=== PATIENT | male | born 1975 | race Hispanic/Latino ===

== ENCOUNTER 2023-09-15 08:27 | Day surgery (SDC) | payer OTHER ==
[2023-09-13 14:00] LABS: BASOPHILS # (AUTO) 0.03 K/uL (0.00-0.20); BASOPHILS % (AUTO) 0.6 % (0.0-5.0); EOSINOPHILS % (AUTO) 1.9 % (0.0-8.0); HEMATOCRIT 43.6 % (42-54); IMMATURE GRANULOCYTE ABSOLUTE 0.01 K/uL (0-1); LYMPHOCYTES # (AUTO) 1.7 K/uL (1.0-4.8); LYMPHOCYTES % (AUTO) 32.3 % (21.0-51.0); MEAN CORPUSCULAR HEMOGLOBIN 32.3 pg (27.0-33.0); MEAN CORPUSCULAR HGB CONC 33.7 g/dL (32.0-36.0); MEAN CORPUSCULAR VOLUME 95.8 fL (79-99); MONOCYTES # (AUTO) 0.4 K/uL (0.1-1.0); MONOCYTES % (AUTO) 7.2 % (3.0-13.0); NEUTROPHILS % (AUTO) 57.8 % (40.0-77.0); PLATELET COUNT (AUTO) 163 K/uL (130-400); RED BLOOD CELL COUNT(AUTO) 4.55 MIL/uL (4.50-6.20); RED CELL DISTRIBUTION WIDTH 12.8 % (11.0-15.5); WHITE BLOOD COUNT (AUTO) 5.3 K/uL (4.8-10.8)
[2023-09-13 14:08] LABS: POTASSIUM 3.8 mmol/L (3.5-5.1)
[2023-09-13 14:10] LABS: INR 0.95 (0.85-1.15); PROTHROMBIN TIME 11.3 SEC (9.6-11.6)
[2023-09-13 14:36] LABS: APPEARANCE,URINE CLEAR (CLEAR); BILIRUBIN,URINE NEGATIVE (NEGATIVE); COLOR,URINE COLORLESS (YELLOW); GLUCOSE, URINE (UA) NEGATIVE (NEGATIVE); KETONES,URINE NEGATIVE (NEGATIVE); LEUKOCYTE ESTERASE ,URINE NEGATIVE Leu/uL (NEGATIVE); NITRATE,URINE NEGATIVE (NEGATIVE); OCCULT BLOOD,URINE NEGATIVE (NEGATIVE); PH,URINE 6.5 (5.0-8.0); PROTEIN,URINE NEGATIVE (NEGATIVE); UROBILINOGEN,URINE 0.2 mg/dL (0.2-1.0)
[2023-09-13 14:45] LABS: B-TYPE NATRIURETIC PEPTIDE 10 pg/mL (0-100)
[2023-09-13 14:48] LABS: ADD UA MICROSCOPIC YES
[2023-09-13 15:03] VITALS: BP 125/78; PULSE 63; RESP 16
[2023-09-13 15:06] LABS: RBC,URINE 0-1 /HPF (0-1)
[~2023-09-15] VITALS: Ht 167.6 cm; Wt 76.7 kg
[2023-09-15] VITALS (8 sets, daily range): BP systolic 96–115; BP diastolic 57–74; PULSE 54–67; RESP 14–18
[~2023-09-15 08:27] MED LIST: AEC81 PO; ATOR40TA69 PO; ISOS30TA92 PO; METO-408 PO; NITR0.4T50 SL
[2023-09-15] MEDS: 0.9%NACL 1000ML 1,000 ML IV ONE (09:09)
[2023-09-15] MEDS ORDERED: IOHEXOL 350 MG/ML 100ML INFUS..BTL IV ONE (11:44)
[2023-09-15] MEDS ORDERED: LIDOCAINE HCL 400MG/20ML VIAL ONE (11:44)
[2023-09-15] MEDS ORDERED: IOHEXOL-350 50ML VIAL IV ONE (11:44)
[2023-09-15] MEDS ORDERED: HEPARIN 10,000 UNIT/10ML (1,000 UNIT/ML) VIAL ONE (11:44)
== END 2023-09-15 15:35 | disposition home or self-care (01) ==
LOC: DAH 08:27
PROVIDERS: ATTEND Internal Medicine Cardiovascular Disease
DX: I25.119 Atherosclerotic heart disease of native coronary artery with unspecified angina pectoris (principal); E78.5 Hyperlipidemia, unspecified; Z79.01 Long term (current) use of anticoagulants; Z79.899 Other long term (current) drug therapy; Z90.49 Acquired absence of other specified parts of digestive tract; Z98.890 Other specified postprocedural states; Z82.49 Family history of ischemic heart disease and other diseases of the circulatory system; Z72.89 Other problems related to lifestyle; Z87.891 Personal history of nicotine dependence
CPT/HCPCS: 80048; 83880; 85025; 85610; 85730; 81001; 36415; 71045; 93005; 93458; C1894; C1760; J3490; J7030; J1644; Q9967 ×2; A4215; A4222; A4221; A4663; A4216; A4606; A4223 ×3